=== PATIENT | female | born 1980 | race Caucasian/White ===

== ENCOUNTER 2022-10-12 12:47 | Emergency (ER) | payer SELFPAY ==
--- NOTE | 2022-10-12 13:36 | RAD REPORT ---
EXAM DESCRIPTION: CT - Spine Lumbar Wo Con - 10/12/2022 1:24 pm CLINICAL HISTORY: Radiculopathy. pain COMPARISON: No comparisons TECHNIQUE: Axial noncontrast CT imaging of the lumbar spine was performed with coronal and sagittal re-formatted images. All CT scans are performed using dose optimization technique as appropriate and may include automated exposure control or mA/KV adjustment according to patient size. FINDINGS: No acute lumbar spine fracture seen. Facet degenerative changes are present at the lower l umbar levels. This results in mild bilateral neural foraminal narrowing at L5-S1. Possible central di sc protrusion at L5-S1. Paraspinal tissues are normal in thickness. No paraspinal abscess or hematoma seen. Intervertebral disc disease assessment is inherently limited by CT. Within these limitations, no high -grade canal stenosis suspected. IMPRESSION: No acute osseus abnormality involving the lumbar spine. Central protrusion which is slig htly right eccentric at L5-S1 could possibly explain a radiculopathy. MRI could better assess.
--- NOTE | 2022-10-12 13:37 | RAD REPORT ---
EXAM DESCRIPTION: CT - C Spine Wo Con - 10/12/2022 1:24 pm CLINICAL HISTORY: PAIN COMPARISON: No comparisons TECHNIQUE: CT Scan was obtained of the cervical spine without contrast. Reformats were provided in t he sagittal and coronal plane. FINDINGS: Fusion of the C2-C3 vertebral bodies is presumably congenital or developmental. No traumat ic malalignment. No prevertebral edema. Cervical spondylosis with varying degrees of neural foraminal narrowing. This is most notable at the C4-5 and C6-7 levels were there is bilateral neural foraminal narrowing. No suspicious thyroid nodules or lymphadenopathy. The lung apices are clear. IMPRESSION: No fracture or traumatic malalignment of the cervical spine.
[2022-10-12] MEDS ORDERED: dexAMETHasone 10 MG/ML VIAL ONE (13:53)
[2022-10-12] MEDS ORDERED: KETOROLAC 30 MG/ML INJ ONE (13:54)
[2022-10-12] MEDS ORDERED: DIAZEPAM 10 MG/2 ML INJ SYRINGE ONE (13:54)
[2022-10-12] MEDS ORDERED: MORPHINE 4 MG/ML SYR ONE (14:57)
--- NOTE | 2022-10-12 16:13 | ER ---
Nurse's Notes [facility] Name: Connie Koch Age: 42 yrs Sex: Female : 1980 Arrival Date: 10/12/2022 Time: 12:49 Bed 12 Private MD: Diagnosis: Radiculopathy, cervical region Presentation: 10/12 13:04 Chief complaint: Patient states: R arm pain that began yesterday. No known injury. ss Coronavirus screen: Client denies travel out of the [place] in the last 14 days. Ebola Screen: Patient denies exposure to infectious person. Patient denies travel to an Ebola-affected area in the 21 days before illness onset. Initial Sepsis Screen: Does the patient meet any 2 criteria? No. Patient's initial sepsis screen is negative. Does the patient have a suspected source of infection? No. Patient's initial sepsis screen is negative. Risk Assessment: Do you want to hurt yourself or someone else? Patient reports no desire to harm self or others. Onset of symptoms was October 11, 2022. 13:04 Method Of Arrival: Ambulatory ss 13:04 Acuity: SARY 3 ss Historical: - Allergies: 13:06 No Known Allergies; ss - Home Meds: 13:06 None [Active]; ss - PMHx: 13:06 None; ss - PSHx: 13:06 Heart surgery at 8 yo and 9 yo; back sx; tubal ligation; ss - Immunization history:: Client reports having NOT received the Covid vaccine. - Social history:: Smoking status: Patient reports the use of cigarette tobacco products, smokes one-half pack cigarettes per day. Screenin:01 [facility] ED Fall Risk Assessment (Adult) History of falling in the last 3 months, mb9 including since admission No falls in past 3 months (0 pts) Confusion or Disorientation No (0 pts) Intoxicated or Sedated No (0 pts) Impaired Gait Yes (1 pt) Mobility Assist Device Used Yes (1 pt) Altered Elimination No (0 pt) Score/Fall Risk Level 0 - 2 = Low Risk Oriented to surroundings, Maintained a safe environment, Educated pt \T\ family on fall prevention, incl call for assistance when getting out of bed. Abuse screen: Denies threats or abuse. Nutritional screening: No deficits noted. Tuberculosis screening: No symptoms or risk factors identified. Assessment: 14:01 General: Appears uncomfortable, Behavior is anxious. Pain: Complains of pain in Right mb9 lower back Pain radiates to right shoulder Pain at worst was 10 out of 10 on a pain scale. Quality of pain is described as sharp, shooting, stabbing, Pain began 1 day ago. Aggravated by increased activity, repositioning. Neuro: Level of Consciousness is awake, alert, obeys commands, Oriented to person, place, time, situation, Appropriate for age. Cardiovascular: Rhythm is sinus tachycardia. Respiratory: Airway is patent Respiratory effort is even, unlabored, Respiratory pattern is regular, symmetrical. Derm: Skin is pink, warm \T\ dry. Musculoskeletal: Range of motion: limited in right shoulder and right elbow. 15:00 Reassessment: No changes from previously documented assessment. Patient states symptoms mb9 have not improved. 15:53 Reassessment: No changes from previously documented assessment. Patient and/or family mb9 updated on plan of care and expected duration. Pain level reassessed. Patient is alert, oriented x 3, equal unlabored respirations, skin warm/dry/pink. Patient states feeling better. Patient states symptoms have improved. Vital Signs: 13:04 BP 94 / 71; Pulse 62; Resp 16; Temp 97.8(TE); Pulse Ox 100% on R/A; Weight 56.7 kg; ss Height 5 ft. 7 in. (170.18 cm); Pain 10/10; 13:59 BP 110 / 86; Pulse 130; Resp 18; Pulse Ox 99% ; mb9 15:08 BP 140 / 96; Pulse 72; Resp 18; Pulse Ox 98% on R/A; mb9 15:53 BP 118 / 88; Pulse 62; Resp 16; Pulse Ox 99% on R/A; Pain 5/10; mb9 13:04 Body Mass Index 19.58 (56.70 kg, 170.18 cm) ED Course: 12:49 Patient arrived in ED. as 12:53 Luis Enrique Moore PA is PHCP. mildred 12:53 Tushar Ge DO is Attending Physician. m 13:06 Triage completed. ss 13:06 Arm band placed on right wrist. ss 13:45 Placed in gown. Bed in low position. Call light in reach. Side rails up X 1. Client mb9 placed on continuous cardiac and pulse oximetry monitoring. NIBP monitoring applied. ekg monitor tech on. 13:47 Myaela Boston, RN is Primary Nurse. mb9 13:49 Inserted saline lock: 22 gauge in right antecubital area, using aseptic technique. iw 16:23 No provider procedures requiring assistance completed. IV discontinued, intact, mb9 bleeding controlled, No redness/swelling at site. Pressure dressing applied. Administered Medications: 13:50 Drug: Ketorolac 30 mg Route: IVP; Site: right antecubital; mb9 15:07 Follow up: Response: No adverse reaction mb9 13:55 Drug: Valium (diazepam) 5 mg Route: IVP; Site: right antecubital; mb9 15:07 Follow up: Response: No adverse reaction mb9 13:59 Drug: Decadron - Dexamethasone 10 mg Route: IVP; Site: right antecubital; mb9 15:07 Follow up: Response: No adverse reaction mb9 15:07 Drug: morphine 4 mg Route: IVP; Infused Over: 4 mins; Site: right antecubital; mb9 16:04 Follow up: Response: No adverse reaction mb9 Medication: 14:01 VIS not applicable for this client. mb9 Outcome: 16:13 Discharge ordered by . mildred 16:23 Discharged to home via wheelchair. mb9 16:23 Condition: stable 16:23 Discharge instructions given to patient, Instructed on discharge instructions, follow up and referral plans. Demonstrated understanding of instructions, follow-up care, medications, Prescriptions given X 3. 16:24 Patient left the ED. mb9 Signatures: Luis Enrique Moore PA PA jmm Martinez, Amelia as Williams, Irene, WM BURK Krystal Alfaro RN RN ss Breneman, Mary Beth, WM RN mb9
--- NOTE | 2022-10-12 16:13 | EDPHYS ---
Physician Documentation [facility] Name: Connie Koch Age: 42 yrs Sex: Female : 1980 Arrival Date: 10/12/2022 Time: 12:49 Bed 12 Private MD: ED Physician Tushar Ge HPI: 10/12 13:34 This 42 yrs old Female presents to ER via Ambulatory with complaints of Shoulder Pain - jmm nerve pain. 13:34 Onset: The symptoms/episode began/occurred gradually, 1 day(s) ago. jmm 13:34 Is a 42-year-old female with no chronic medical conditions presents emerged part with [facility] complaints of neck pain which radiates into the right arm. Patient states having a similar episode approximately 10 years ago with a bulging disc. Denies any known injury. Denies fever.. Historical: - Allergies: 13:06 No Known Allergies; ss - Home Meds: 13:06 None [Active]; ss - PMHx: 13:06 None; ss - PSHx: 13:06 Heart surgery at 8 yo and 9 yo; back sx; tubal ligation; ss - Immunization history:: Client reports having NOT received the Covid vaccine. - Social history:: Smoking status: Patient reports the use of cigarette tobacco products, smokes one-half pack cigarettes per day. ROS: 16:10 Constitutional: Negative for fever, chills, and weight loss. jmm 16:10 Neck: Positive for pain with movement. 16:10 MS/extremity: Positive for pain. 16:10 All other systems are negative. Exam: 16:10 Constitutional: This is a well developed, well nourished patient who is awake, alert, jmm and in no acute distress. Head/Face: atraumatic. Eyes: EOMI, no conjunctival erythema appreciated ENT: Moist Mucus Membranes 16:10 Chest/axilla: Normal chest wall appearance and motion. Cardiovascular: Regular rate and rhythm. No edema appreciated Respiratory: Normal respirations, no respiratory distress appreciated Abdomen/GI: Non distended Back: Normal ROM Skin: General appearance color normal 16:10 Neck: C-spine: right sided cervical pain, ROM/movement: pain, that is moderate. 16:10 Musculoskeletal/extremity: ROM: intact in all extremities, full right security officer strength. 16:10 Skin: Appearance: Color: normal in color. 16:10 Neuro: Orientation: is normal, Mentation: is normal, Memory: is normal. 16:10 Psych: Behavior/mood is pleasant, cooperative. Vital Signs: 13:04 BP 94 / 71; Pulse 62; Resp 16; Temp 97.8(TE); Pulse Ox 100% on R/A; Weight 56.7 kg; ss Height 5 ft. 7 in. (170.18 cm); Pain 10/10; 13:59 BP 110 / 86; Pulse 130; Resp 18; Pulse Ox 99% ; mb9 15:08 BP 140 / 96; Pulse 72; Resp 18; Pulse Ox 98% on R/A; mb9 15:53 BP 118 / 88; Pulse 62; Resp 16; Pulse Ox 99% on R/A; Pain 5/10; mb9 13:04 Body Mass Index 19.58 (56.70 kg, 170.18 cm) ss MDM: 13:04 Patient medically screened. [facility] 16:11 Differential diagnosis: DJD, Cervical radiculopathy, carotid dissection. Data reviewed: [facility] vital signs, nurses notes, radiologic studies, CT scan. I considered the following discharge prescriptions or medication management in the emergency department Medications were administered in the Emergency Department. See MAR. Test considered but Not performed: CT: CT neck with angio. Patient has no neurologic deficits. Historians other than the Patient: . Counseling: I had a detailed discussion with the patient and/or guardian regarding: the historical points, exam findings, and any diagnostic results supporting the discharge/admit diagnosis, lab results, radiology results, the need for outpatient follow up, to return to the emergency department if symptoms worsen or persist or if there are any questions or concerns that arise at home. Response to treatment: the patient's symptoms have markedly improved after treatment. 10/12 13:05 Order name: CT C Spine [facility] 10/12 13:37 Order name: CT; Complete Time: 13:43 EDCO 10/12 13:38 Order name: CT; Complete Time: 13:43 EDCO 10/12 13:06 Order name: Saline Lock; Complete Time: 13:58 [facility] Administered Medications: 13:50 Drug: Ketorolac 30 mg Route: IVP; Site: right antecubital; 9 15:07 Follow up: Response: No adverse reaction mb9 13:55 Drug: Valium (diazepam) 5 mg Route: IVP; Site: right antecubital; mb9 15:07 Follow up: Response: No adverse reaction mb9 13:59 Drug: Decadron - Dexamethasone 10 mg Route: IVP; Site: right antecubital; mb9 15:07 Follow up: Response: No adverse reaction mb9 15:07 Drug: morphine 4 mg Route: IVP; Infused Over: 4 mins; Site: right antecubital; mb9 16:04 Follow up: Response: No adverse reaction mb9 Disposition: 18:41 Co-signature as Attending Physician, Tushar Ge DO I was immediately available on-site ms3 in the Emergency Department for consultation in the care of the patient. Disposition Summary: 10/12/22 16:13 Discharge Ordered Location: Home [facility] Condition: Stable [facility] Diagnosis - Radiculopathy, cervical region [facility] Followup: [facility] - With: Private Physician - When: 2 - 3 days - Reason: Recheck today's complaints, Continuance of care, Re-evaluation by your physician Discharge Instructions: - Discharge Summary Sheet [facility] - Cervical Radiculopathy [facility] Forms: - Medication Reconciliation Form [facility] - Thank You Letter [facility] - Antibiotic Education [facility] - Prescription Opioid Use [facility] Prescriptions: - Prednisone 20 mg Oral Tablet - take 3 tablets by ORAL route once daily for 5 days; 15 tablet; Refills: 0, [facility] Product Selection Permitted - Zanaflex 4 mg Oral Tablet - take 1 tablet by ORAL route every 8 hours As needed; 20 tablet; Refills: 0, [facility] Product Selection Permitted - Diclofenac Sodium 75 mg Oral Tablet Sustained Release - take 1 tablet by ORAL route 2 times per day; 30 tablet; Refills: 0, Product [facility] Selection Permitted Signatures: Dispatcher [employer] Luis Enrique Troncoso PA PA jmm Smirch, Shelby, RN RN ss Sims, Marcus, DO DO ms3 Mayela Boston RN RN mb9
[2022-10-12 17:23] VITALS: O2SAT 100
[2022-10-12 17:24] VITALS: BP 142/98
== END 2022-10-12 16:24 | disposition home or self-care (01) ==
LOC: ER 12:47
DX: M54.12 Radiculopathy, cervical region (principal)
CPT/HCPCS: 72125; 72131; 96374; 96375; 99284; J1100; J3360

== ENCOUNTER 2022-10-22 13:09 | Emergency (ER) | payer SELFPAY ==
[2022-10-22] MEDS ORDERED: DIAZEPAM 10 MG/2 ML INJ SYRINGE ONE (13:56)
[2022-10-22] MEDS ORDERED: KETOROLAC 30 MG/ML INJ ONE (13:56)
[2022-10-22] MEDS ORDERED: NA CHLORIDE 0.9% 1,000 ML ONE (13:56)
[2022-10-22 14:20] LABS: Lymphocytes % 21.6 % (15.3-44.8); MPV 7.8 fL (7.6-11.3); RBC Red Blood Cell Count 3.98 M/uL (3.86-4.86)
[2022-10-22 14:37] LABS: Albumin 3.9 g/dL (3.4-5.0); Bilirubin Direct 0.2 mg/dL (0-0.2); Bilirubin Total 0.8 mg/dL (0.2-1.0); Magnesium 2.2 mg/dL (1.6-2.4); Potassium 3.3 mmol/L (3.5-5.1); Protein, Total 7.3 g/dL (6.4-8.2)
--- NOTE | 2022-10-22 15:39 | ER ---
Nurse's Notes [facility] Name: Connie Koch Age: 42 yrs Sex: Female : 1980 Arrival Date: 10/22/2022 Time: 13:13 Bed 18 Private MD: Diagnosis: Dorsalgia, unspecified;Cervicalgia Presentation: 10/22 13:18 Chief complaint: Patient states: back pain that has been ongoing for days, worse in ss severity. Pt recently seen in ER for the same complaint. HX of chronic back pain. Coronavirus screen: Client denies travel out of the [place] in the last 14 days. Ebola Screen: Patient denies exposure to infectious person. Patient denies travel to an Ebola-affected area in the 21 days before illness onset. Initial Sepsis Screen: Does the patient meet any 2 criteria? RR > 20 per min. No. Patient's initial sepsis screen is negative. Does the patient have a suspected source of infection? No. Patient's initial sepsis screen is negative. Risk Assessment: Do you want to hurt yourself or someone else? Patient reports no desire to harm self or others. Onset of symptoms is unknown. 13:18 Method Of Arrival: EMS: [facility] ss 13:18 Acuity: SARY 3 ss Historical: - Allergies: 13:19 No Known Allergies; ss - Home Meds: 13:19 None [Active]; ss - PMHx: 13:19 None; ss - PSHx: 13:19 back sx; Heart surgery at 8 yo and 9 yo; tubal ligation; ss - Immunization history:: Client reports having NOT received the Covid vaccine. - Social history:: Smoking status: Patient reports the use of cigarette tobacco products, smokes one-half pack cigarettes per day. Assessment: 14:40 Reassessment: Patient and/or family updated on plan of care and expected duration. Pain kr3 level reassessed. Patient is alert, oriented x 3, equal unlabored respirations, skin warm/dry/pink. Patient states symptoms have improved. 15:30 Reassessment: Patient and/or family updated on plan of care and expected duration. Pain kr3 level reassessed. Patient is alert, oriented x 3, equal unlabored respirations, skin warm/dry/pink. Patient states symptoms have improved. Vital Signs: 13:18 Pulse 85; Resp 34 S; Temp 97.5; Pulse Ox 100% on R/A; Weight 58.97 kg; Height 5 ft. 7 ss in. (170.18 cm); Pain 10/10; 14:30 BP 106 / 67; Pulse 54; Resp 20; Pulse Ox 100% ; kr3 13:18 Body Mass Index 20.36 (58.97 kg, 170.18 cm) ED Course: 13:13 Patient arrived in ED. ll1 13:15 Farhan Sevilla PA is PHCP. cp 13:15 Gold Gonzalez MD is Attending Physician. cp 13:19 Triage completed. ss 13:19 Arm band placed on right wrist. ss 13:41 Missed attempt(s): 22 gauge in left in right antecubital area. Bleeding controlled, ll1 band aid applied, catheter tip intact. 13:47 Merissa Chowdary RN is Primary Nurse. kr3 15:38 Donis Bishop DO is Referral Physician. cp Administered Medications: 14:12 Drug: Diazepam 5 mg Route: IVP; Site: left wrist; kr3 15:50 Follow up: Response: No adverse reaction kr3 14:12 Drug: NS 0.9% 1000 ml Route: IV; Rate: 1 bolus; Site: left wrist; kr3 15:50 Follow up: Response: No adverse reaction; IV Status: Completed infusion; IV Intake: kr3 1000ml 14:12 Drug: Ketorolac 15 mg Route: IVP; Site: left wrist; kr3 15:50 Follow up: Response: No adverse reaction kr3 Intake: 15:50 IV: 1000ml; Total: 1000ml. kr3 Outcome: 15:38 Discharge ordered by . cp 16:08 Patient left the ED. kr3 Signatures: Krystal Alfaro, RN RN Farhan Sevilla PA PA cp Eliu Mcleod RN RN ll1 Merissa Chowdary RN RN kr3
--- NOTE | 2022-10-22 15:39 | EDPHYS ---
Physician Documentation [facility] Name: Connie Koch Age: 42 yrs Sex: Female : 1980 Arrival Date: 10/22/2022 Time: 13:13 Bed 18 Private MD: ED Physician Gold Gonzalez HPI: 10/22 13:30 This 42 yrs old Female presents to ER via EMS with complaints of Back Pain. cp 13:30 The patient presents with pain that is chronic, with no known mechanism of injury. cp 13:30 Onset: The symptoms/episode began/occurred chronic, worse over past couple days. cp 13:30 Associated signs and symptoms: Pertinent positives: abdominal pain, Pertinent cp negatives: chest pain, constipation, dysuria, fever, hematuria, incontinence, numbness, urinary retention, weakness. The problem was sustained from a chronic condition, the patient has known disc disease, the patient has had previous back surgery. 13:30 Severity of symptoms: in the emergency department the symptoms are unchanged, despite cp EMS interventions. The patient has been recently seen at the [facility] Emergency Department, last month, for similar complaints. Historical: - Allergies: 13:19 No Known Allergies; ss - Home Meds: 13:19 None [Active]; ss - PMHx: 13:19 None; ss - PSHx: 13:19 back sx; Heart surgery at 8 yo and 9 yo; tubal ligation; ss - Immunization history:: Client reports having NOT received the Covid vaccine. - Social history:: Smoking status: Patient reports the use of cigarette tobacco products, smokes one-half pack cigarettes per day. ROS: 13:35 Constitutional: Negative for body aches, chills, fever, poor PO intake. cp 13:35 Eyes: Negative for injury, pain, redness, and discharge. cp 13:35 ENT: Negative for drainage from ear(s), ear pain, sore throat, difficulty swallowing, difficulty handling secretions. 13:35 Neck: Positive for pain with movement, pain at rest. 13:35 Cardiovascular: Negative for chest pain, edema, palpitations. 13:35 Respiratory: Negative for cough, shortness of breath, wheezing. 13:35 Abdomen/GI: Positive for abdominal pain, Negative for vomiting, diarrhea, constipation, abdominal distension, bowel incontinence. 13:35 Back: Positive for pain at rest, pain with movement. 13:35 : Negative for urinary symptoms, hematuria, bladder incontinence. 13:35 Neuro: Negative for altered mental status, dizziness, headache, numbness, weakness. 13:35 All other systems are negative. Exam: 13:40 Constitutional: The patient appears in no acute distress, alert, awake, cp non-diaphoretic, non-toxic, well developed, well nourished, in obvious pain, uncomfortable. 13:40 Head/Face: Normocephalic, atraumatic. cp 13:40 Eyes: Periorbital structures: appear normal, Conjunctiva: normal, no exudate, no injection, Sclera: no appreciated abnormality, Lids and lashes: appear normal, bilaterally. 13:40 ENT: External ear(s): are unremarkable, Nose: is normal, Mouth: Lips: moist, Oral mucosa: pink and intact, moist, Posterior pharynx: is normal, airway is patent, no erythema, no exudate. 13:40 Neck: ROM/movement: pain, that is moderate, with any movement, Meningeal signs: are not present, nuchal rigidity, is not appreciated. 13:40 Chest/axilla: Inspection: normal. 13:40 Cardiovascular: Rate: tachycardic, Rhythm: regular. 13:40 Respiratory: the patient does not display signs of respiratory distress, Respirations: normal, no use of accessory muscles, no retractions, labored breathing, is not present, Breath sounds: are clear throughout, no decreased breath sounds, no stridor, no wheezing. 13:40 Abdomen/GI: Inspection: abdomen appears normal, Bowel sounds: active, all quadrants, Palpation: soft, in all quadrants, moderate abdominal tenderness, in all quadrants, rebound tenderness, is not appreciated, voluntary guarding, is elicited in all quadrants. 13:40 Back: pain, that is severe, ROM is painful, with all movement. 13:40 Neuro: Orientation: to person, place \T\ time. Mentation: is normal, Motor: moves all fours, strength is normal, Sensation: is normal. 15:17 ECG was reviewed by the Attending Physician. cp Vital Signs: 13:18 Pulse 85; Resp 34 S; Temp 97.5; Pulse Ox 100% on R/A; Weight 58.97 kg; Height 5 ft. 7 ss in. (170.18 cm); Pain 10/10; 14:30 BP 106 / 67; Pulse 54; Resp 20; Pulse Ox 100% ; kr3 13:18 Body Mass Index 20.36 (58.97 kg, 170.18 cm) ss MDM: 13:16 Patient medically screened. cp 15:26 Data reviewed: vital signs, nurses notes, lab test result(s), EKG. I considered the cp following discharge prescriptions or medication management in the emergency department Medications were administered in the Emergency Department. See MAR. Test considered but Not performed: CT: abdomen/pelvis. Care significantly affected by the following chronic conditions: neck pain. Counseling: I had a detailed discussion with the patient and/or guardian regarding: the historical points, exam findings, and any diagnostic results supporting the discharge/admit diagnosis, lab results, radiology results, the need for outpatient follow up, a family practitioner, a spray painter, to return to the emergency department if symptoms worsen or persist or if there are any questions or concerns that arise at home. Response to treatment: the patient's symptoms have markedly improved after treatment, and as a result, I will discharge patient. 10/22 13:25 Order name: Urine Test (obtain specimen); Complete Time: 16:04 cp 10/22 13:25 Order name: Urine Dipstick-Ancillary (obtain specimen); Complete Time: 16:04 cp 03 13:25 Order name: Basic Metabolic Panel cp 10/22 13:25 Order name: CBC with Diff cp 10/22 13:25 Order name: LFT's cp 10/22 13:25 Order name: Magnesium cp 10/22 13:25 Order name: EKG; Complete Time: 13:26 cp 03 13:25 Order name: Cardiac monitoring; Complete Time: 14:50 cp 03/05 13:25 Order name: EKG - Nurse/Tech; Complete Time: 15:45 cp 03 13:25 Order name: IV Saline Lock; Complete Time: 14:50 cp 03/ 13:25 Order name: Labs collected and sent; Complete Time: 14:50 cp 03/ 13:25 Order name: O2 Per Protocol; Complete Time: 14:50 cp 03 13:25 Order name: O2 Sat Monitoring; Complete Time: 14:50 cp 03 13:25 Order name: Lipase cp 03/05 14:24 Order name: CBC with Automated Diff; Complete Time: 14:53 EDMS 10/22 14:53 Interpretation: Normal except: WBC 13.90; HGB 11.5; HCT 35.0; RDW 16.8; NEUT A 10.0. cp 10/22 14:37 Order name: Basic Metabolic Panel; Complete Time: 14:53 EDMS 10/22 14:54 Interpretation: Normal except: K 3.3. cp 10/22 14:37 Order name: Liver (Hepatic) Function; Complete Time: 14:53 EDMS 10/22 14:37 Order name: Magnesium; Complete Time: 14:53 EDMS 10/22 14:37 Order name: Lipase; Complete Time: 14:53 EDMS 10/22 15:50 Order name: Urine Dipstick-Ancillary EDMS EC:17 Rate is 57 beats/min. Rhythm is regular. IN interval is normal. QRS interval is normal. cp QT interval is normal. Interpreted by me. Reviewed by me. Administered Medications: 14:12 Drug: Diazepam 5 mg Route: IVP; Site: left wrist; kr3 15:50 Follow up: Response: No adverse reaction kr3 14:12 Drug: NS 0.9% 1000 ml Route: IV; Rate: 1 bolus; Site: left wrist; kr3 15:50 Follow up: Response: No adverse reaction; IV Status: Completed infusion; IV Intake: kr3 1000ml 14:12 Drug: Ketorolac 15 mg Route: IVP; Site: left wrist; kr3 15:50 Follow up: Response: No adverse reaction kr3 Disposition: 16:42 Co-signature as Attending Physician, Gold Gonzalez MD I agree with the assessment and kdr plan of care. Disposition Summary: 10/22/22 15:38 Discharge Ordered Location: Home cp Problem: an ongoing problem cp Symptoms: have improved cp Condition: Stable cp Diagnosis - Dorsalgia, unspecified cp - Cervicalgia cp Followup: cp - With: Donis Bishop DO - When: 2 - 3 days - Reason: Recheck today's complaints Discharge Instructions: - Discharge Summary Sheet cp - Chronic Back Pain cp - Neck Exercises cp - Back Exercises cp Forms: - Medication Reconciliation Form cp - Thank You Letter cp - Antibiotic Education cp - Prescription Opioid Use cp Prescriptions: - Baclofen 10 mg Oral Tablet - take 1 tablet by ORAL route 2 times per day; 20 tablet; Refills: 0, Product cp Selection Permitted - Diclofenac Sodium 75 mg Oral Tablet Sustained Release - take 1 tablet by ORAL route 2 times per day; 30 tablet; Refills: 0, Product cp Selection Permitted Signatures: Dispatcher [employer] EDMS Gold Gonzalez MD MD kdr Smirch, Shelby, RN RN ss Farhan Sevilla PA PA cp Reid, Kelley, RN RN kr3 Corrections: (The following items were deleted from the chart) 15:28 15:28 This 42 yrs old Female presents to ER via EMS with complaints of Back Pain. cp cp 10/23 03:25 03 13:30 The patient has been recently seen at the [facility] cp Emergency Department, last week, for similar complaints cp
[2022-10-22 15:50] LABS: Urine Blood Negative (Negative); Urine Glucose Negative (Negative); Urine Protein Negative (Negative); Urine Specific Gravity 1.015 (1.005-1.030); Urine pH 7.5 (5.0-7.0)
[2022-10-22 16:26] VITALS: TEMP 97.5; O2SAT 100
[2022-10-22 16:27] VITALS: BP 106/67
--- NOTE | 2022-10-23 16:39 | EKG ---
Test Date: 2022-10-22 Test Time: 15:13:01 Jewel Oliving Machine Operator: TO MEASUREMENT RESULTS: Intervals: Rate: 57 CO: 176 QRSD: 96 QT: 430 QTc: 418 [place]: P: 48 CO: 176 QRS: 83 T: 72 INTERPRETIVE STATEMENTS: Sinus bradycardia with sinus arrhythmia Otherwise normal ECG No previous ECG available for comparison Electronically Signed On 10-23-22 16:36:39 PRESS DEPARTMENT MANAGER by Abbe Bradley
== END 2022-10-22 16:08 | disposition home or self-care (01) ==
LOC: ER 13:09
DX: M54.9 Dorsalgia, unspecified (principal); M54.2 Cervicalgia
CPT/HCPCS: 36415; 80048; 80076; 81003; 83690; 83735; 85025; 93005; 96361; 96374; 96375; 99283; J3360; J7030